=== PATIENT | female | born 1990 | race Caucasian/White ===

== ENCOUNTER 2017-01-13 09:56 | Emergency (ER) | payer OTHER ==
[~2017-01-13] VITALS: Ht 152.4 cm; Wt 135.0 kg
[~2017-01-13 09:56] MED LIST: NAPR550 PO; Z.0.NO CURRENT MEDS
[2017-01-13 10:00] VITALS: BP 140/96; PULSE 114; RESP 28; TEMP 98.1; O2SAT 97
[2017-01-13] MEDS ORDERED: AMOX500T PO (10:08)
[2017-01-13] MEDS ORDERED: SODIUM CHLOR 0.9% 1000 ML INJ 1,000 ML IV SCH (10:45)
[2017-01-13] MEDS ORDERED: AMPICILLIN-SULBACTAM INJ 3 GM in SODIUM CHLORIDE 0.9% INJ 100 ML IV ONE (10:45)
[2017-01-13] MEDS ORDERED: DEXAMETHASONE SOD PHOS 4 MG/ML VIAL IV PUSH ONE (10:45)
--- NOTE | 2017-01-13 10:45 | PD ---
HPI Chief Complaint: Respiratory Symptoms Time Seen by Provider: 10:32 Travel History International Travel<30 days: No Contact w/Intl Traveler<30days: No Traveled to known affect area: No History of Present Illness HPI 26-year-old female complains of sore throat congestion and shortness of breath. Patient states that the symptoms started a month ago and it was for the past several days. Patient states that she is unable to swallow much this morning. Patient started having fever yesterday. Patient states that she has intermittent nausea but no vomiting or diarrhea. Patient denies any chance of being . Patient states that the cough is mild intermittent. PFSH Past Medical History Anemia: Yes (IRON-DEFICIENCY) Asthma: Yes ( A CHILD) Sleep Apnea: Yes Tetanus Vaccination: > 5 Years Influenza Vaccination: No ?: Not LMP: DECEMBER 2016 : 1 Para: 1 Miscarriage: 0 : 0 Past Surgical History Surgical History: No Previous Surgery Social History Alcohol Use: Yes ("on holidays"; OCCASIONALLY) Tobacco Use: No Substance Use: No Allergies-Medications (Allergen,Severity, Reaction): Coded Allergies: No Known Allergies (Verified , 01/13/17) Reported Meds & Prescriptions Reported Meds & Active Scripts Active Reported Amoxicillin 500 Mg Tab 500 Mg PO TID Review of Systems General / Constitutional: No: Fever Eyes: No: Visual changes HENT: Positive: Sore Throat, No: Headaches Cardiovascular: No: Chest Pain or Discomfort Respiratory: Positive: Shortness of Breath Gastrointestinal: No: Abdominal Pain Genitourinary: No: Dysuria Musculoskeletal: No: Pain Skin: No Rash Neurologic: No: Weakness Psychiatric: No: Depression Endocrine: No: Polydipsia Hematologic/Lymphatic: No: Easy Bruising Physical Exam Narrative GENERAL: Well-nourished, well-developed patient. SKIN: Focused skin assessment warm/dry. HEAD: Normocephalic. EYES: No scleral icterus. No injection or drainage. TM: Clear. Throat: Erythematous with exudate and edema. The tonsils are almost touching each other. NECK: Supple, trachea midline. No JVD or lymphadenopathy. CARDIOVASCULAR: Regular rate and rhythm without murmurs, gallops, or rubs. RESPIRATORY: Breath sounds equal bilaterally. No accessory muscle use. No stridor or wheezes. MUSCULOSKELETAL: No cyanosis, or edema. BACK: Nontender without obvious deformity. No CVA tenderness. Neurologic exam normal. Data Data Last Documented VS Vital Signs Date Time Temp Pulse Resp B/P Pulse Ox O2 Delivery O2 Flow Rate FiO2 01/13/17 10:05 111 26 99 Room Air 01/13/17 10:00 98.1 140/96 Orders Complete Blood Count With Diff (01/13/17 10:38) Comprehensive Metabolic Panel (01/13/17 10:38) Prothrombin Time / Inr (Pt) (01/13/17 10:38) Act Partial Throm Time (Ptt) (01/13/17 10:38) Chest, Single Ap (01/13/17 10:38) Iv Access Insert/Monitor (01/13/17 10:38) Ecg Monitoring (01/13/17 10:38) Oximetry (01/13/17 10:38) Ed Urine Pregnancytest Poc (01/13/17 10:38) Ct Soft Tiss Neck W Iv Cont (01/13/17 ) Sodium Chlor 0.9% 1000 Ml Inj (Ns 1000 M (01/13/17 10:45) Ampicillin-Sulbactam Inj (Unasyn Inj) (01/13/17 10:45) Dexamethasone Inj (Decadron Inj) (01/13/17 10:45) Group A Rapid Strep Screen (01/13/17 10:41) Strep Culture (Group A) (01/13/17 10:45) Iohexol 350 Inj (Omnipaque 350 Inj) (01/13/17 12:09) Labs Laboratory Tests Test 01/13/17 10:45 White Blood Count 13.4 TH/MM3 Red Blood Count 4.34 MIL/MM3 Hemoglobin 10.5 GM/DL Hematocrit 32.7 % Mean Corpuscular Volume 75.3 FL Mean Corpuscular Hemoglobin 24.1 PG Mean Corpuscular Hemoglobin 32.0 % Concent Red Cell Distribution Width 15.5 % Platelet Count 259 TH/MM3 Mean Platelet Volume 8.2 FL Neutrophils (%) (Auto) % Lymphocytes (%) (Auto) % Monocytes (%) (Auto) % Eosinophils (%) (Auto) % Basophils (%) (Auto) % Neutrophils # (Auto) TH/MM3 Lymphocytes # (Auto) TH/MM3 Monocytes # (Auto) TH/MM3 Eosinophils # (Auto) TH/MM3 Basophils # (Auto) TH/MM3 CBC Comment AUTO DIFF Differential Total Cells 100 Counted Neutrophils % (Manual) 49 % Band Neutrophils % 10 % Lymphocytes % 35 % Monocytes % 5 % Eosinophils % 1 % Neutrophils # (Manual) 7.9 TH/MM3 Nucleated Red Blood Cells 1 /100 WBC Differential Comment FINAL DIFF MANUAL Platelet Estimate NORMAL Platelet Morphology Comment NORMAL Prothrombin Time 12.0 SEC Prothromb Time International 1.1 RATIO Ratio Activated Partial 31.0 SEC Thromboplast Time Sodium Level 141 MEQ/L Potassium Level 3.8 MEQ/L Chloride Level 108 MEQ/L Carbon Dioxide Level 24.7 MEQ/L Anion Gap 8 MEQ/L Blood Urea Nitrogen 14 MG/DL Creatinine 0.81 MG/DL Estimat Glomerular Filtration 84 ML/MIN Rate Random Glucose 83 MG/DL Calcium Level 8.8 MG/DL Total Bilirubin 0.4 MG/DL Aspartate Amino Transf 75 U/L (AST/SGOT) Alanine Aminotransferase 96 U/L (ALT/SGPT) Alkaline Phosphatase 184 U/L Total Protein 7.5 GM/DL Albumin 3.3 GM/DL MDM Medical Decision Making Medical Screen Exam Complete: Yes Emergency Medical Condition: Yes Interpretation(s) Last Impressions Chest X-Ray 01/13/17 1038 Signed Impressions: Service Date/Time: Friday, January 13, 2017 11:03 - CONCLUSION: No acute disease. Ankit Bonner MD FACR Neck CT 01/13/17 0000 Signed Impressions: Service Date/Time: Friday, January 13, 2017 11:58 - CONCLUSION: 1. Symmetrically enlarged palatine tonsils and adenoidal tissue. There is upper cervical adenopathy with submandibular lymph nodes measuring up to about 2.5 cm in diameter bilaterally. There is also mild ethmoid sinus disease. No acute bony abnormality. Lung apices are clear. Shmuel Cho MD 1330 3 PM. CBC W is a 13.4. Hemoglobin 10.5 hematocrit 32.7. 49 neutrophil and 10 bands. CMP within normal limit. AST 75. ALT 96. Alkaline phosphatase 184. Differential Diagnosis Differential diagnosis including tonsillitis, peritonsillar abscess, parapharyngeal abscess. Narrative Course 26-year-old female with severe tonsillitis and sore throat. Normal saline solution 1 25 cc an hour. Unasyn 3 g IV. Decadron 8 mg IV. Diagnosis Primary Impression: Tonsillitis Patient Instructions: General Instructions Additional Instructions: Take medications as directed. Tylenol for fever. Follow-up with personal physician. Return if worse. Return immediately if unable to swallow, shortness of breath. Med/Other Pt SpecificInfo: Prescription(s) given Scripts [Orapred] No Conflict Check20 Mg PO BID 5 Days Prov:Angelo Mccollum MD 01/13/17 [Phenergan W Codein] No Conflict Check10 Ml PO Q6HR #120 Prov:Angelo Mccollum MD 01/13/17 Clindamycin Liq 75 Mg/5 Ml [id number] Mg PO QID 10 Days Ref 0 Prov:Angelo Mccollum MD 01/13/17 Disposition: 01 DISCHARGE HOME Condition: Stable Angelo Mccollum MD Jan 13, 2017 10:44
[2017-01-13 11:05] LABS: HEMATOCRIT 32.7 % (35.0-46.0); MEAN CELL VOLUME 75.3 FL (80.0-100.0); MEAN CORPUSCULAR HEMOGLOBIN 24.1 PG (27.0-34.0); PLATELET COUNT 259 TH/MM3 (150-450); RED BLOOD COUNT 4.34 MIL/MM3 (4.00-5.30); RED CELL DISTRIBUTION WIDTH 15.5 % (11.6-17.2); WHITE BLOOD COUNT 13.4 TH/MM3 (4.0-11.0)
[2017-01-13 11:08] LABS: HEMO FLAGS AUTO DIFF
[2017-01-13 11:10] LABS: INTERNATIONAL NORMALIZED RATIO 1.1 RATIO
[2017-01-13 11:21] LABS: ALT (GPT) 96 U/L (10-53); ANION GAP 8 MEQ/L (5-15); AST (GOT) 75 U/L (15-37); BICARBONATE 24.7 MEQ/L (21.0-32.0); BLOOD UREA NITROGEN 14 MG/DL (7-18); CHLORIDE 108 MEQ/L (98-107); GLOMERULAR FILTRATION RATE 84 ML/MIN (>89); POTASSIUM 3.8 MEQ/L (3.5-5.1); SODIUM (NA) 141 MEQ/L (136-145)
[2017-01-13 11:23] LABS: ALKALINE PHOSPHATASE 184 U/L (45-117); TOTAL BILIRUBIN ADULT 0.4 MG/DL (0.2-1.0)
--- NOTE | 2017-01-13 11:28 | RADRPT ---
EXAM DATE/TIME: 01/13/2017 11:03 [facility] COMPARISON: No previous studies available for comparison. INDICATIONS : Short of breath MEDICAL HISTORY : Swelling in back of throat SURGICAL HISTORY : None. ENCOUNTER: Initial ACUITY: 3 days PAIN SCORE: 4/10 LOCATION: Bilateral chest FINDINGS: A single view of the chest demonstrates the lungs to be symmetrically aerated without evidence of mas s, infiltrate or effusion. The cardiomediastinal contours are unremarkable. Osseous structures are intact. CONCLUSION: No acute disease. Ankit Bonner MD FACR on January 13, 2017 at 11:26 Board Certified Radiologist. This report was verified electronically.
[2017-01-13 11:50] LABS: BANDS 10 % (0-6); CORRECTED NUCLEATED RBC 1 /100 WBC (0-0); EOSINOPHILS 1 % (0-4); NEUTROPHIL # MANUAL DIFF 7.9 TH/MM3 (1.8-7.7); PLATELET ESTIMATE SMEAR NORMAL (NORMAL); PLATELET MORPHOLOGY NORMAL (NORMAL); POLYS (SEG NEUTROPHILS) 49 % (16-70); SCAN/DIFF FINAL DIFF MANUAL; WBC DIFF SAMPLE 100
[2017-01-13] MEDS ORDERED: IOHEXOL 350 MG/ML 10 ML VIAL (for RAD DIAG) IV ONE (12:09)
--- NOTE | 2017-01-13 12:29 | RADRPT ---
EXAM DATE/TIME: 01/13/2017 11:58 [facility] COMPARISON: No previous studies available for comparison. INDICATIONS : Shortness of breath, swollen tonsils for three days. IV CONTRAST: 70 cc Omnipaque 350 (iohexol) IV RADIATION DOSE: 18.24 CTDIvol (mGy) MEDICAL HISTORY : None SURGICAL HISTORY : None. ENCOUNTER: Initial ACUITY: 3 days PAIN SCALE: 4/10 LOCATION: Bilateral neck TECHNIQUE: Volumetric scanning of the neck was performed. Using automated exposure control and adjustment of th e mA and/or kV according to patient size, radiation dose was kept as low as reasonably achievable to obtain optimal diagnostic quality images. DICOM format image data is available electronically for r eview and comparison. FINDINGS: The palatine tonsils and adenoids are enlarged bilaterally and fairly symmetrically. There is some ad enopathy in the upper neck and submandibular lymph nodes measuring up to around 2.5 cm in diameter bi laterally. The parotid glands and submandibular glands are symmetric. No acute bony abnormalities. CONCLUSION: 1. Symmetrically enlarged palatine tonsils and adenoidal tissue. There is upper cervical adenopathy w ith submandibular lymph nodes measuring up to about 2.5 cm in diameter bilaterally. There is also mil d ethmoid sinus disease. No acute bony abnormality. Lung apices are clear. Shmuel Cho MD on January 13, 2017 at 12:18 Board Certified Radiologist. This report was verified electronically.
[2017-01-13] MEDS ORDERED: PHENERGAN W CODEIN PO (13:40)
[2017-01-13] MEDS ORDERED: CLIN75SO PO (13:40)
[2017-01-13] MEDS ORDERED: ORAPRED PO (13:40)
== END 2017-01-13 14:19 | disposition home or self-care (01) ==
LOC: NEPE 09:56
DX: J03.90 Acute tonsillitis, unspecified (principal); R59.0 Localized enlarged lymph nodes; J32.2 Chronic ethmoidal sinusitis; R06.02 Shortness of breath; R11.0 Nausea; R05 Cough; G47.30 Sleep apnea, unspecified; Z86.2 Personal history of diseases of the blood and blood-forming organs and certain disorders involving the immune mechanism; Z87.09 Personal history of other diseases of the respiratory system
CPT/HCPCS: 70491; 71010; 80053; 84703; 85007; 85027; 85610; 85730; 87081; 87880; 96365; 96366; 96375; 99285; J0295; J1100; J7030; Q9967